=== PATIENT | male | born 1960 | race Two or more races ===

== ENCOUNTER 2022-04-14 09:41 | Emergency (ER) | payer BC, MEDICAID ==
[~2022-04-14] VITALS: Ht 172.7 cm; Wt 76.0 kg
[2022-04-14] MEDS ORDERED: SODIUM CHLORIDE 0.9% 1,000 ML IV ONE ×2 (12:45)
[2022-04-14] MEDS ORDERED: DexAMETHasone SOD PHOS 10MG/1ML VIAL INJ IV ONE (12:45)
[2022-04-14 13:07] LABS: Basophils # (auto) 0 10 ^3/uL (0-0.2); Basophils % (auto) 0.5 % (0.0-2.0); Eosinophils # (auto) 0.2 10 ^3/uL (0-0.8); Eosinophils % (auto) 1.9 % (0.0-7.0); Hemoglobin 12.5 g/dL (13.5-17.5); Lymphocytes # (auto) 0.8 10 ^3/uL (0.4-5.4); Lymphocytes % (auto) 8.3 % (10.0-50.0); Mean Corpuscular Hemoglobin 28.7 pg (28.0-32.0); Mean Corpuscular Volume 86.9 fL (80.0-100.0); Monocytes # (auto) 0.8 10 ^3/uL (0-1.3); Monocytes % (auto) 8.3 % (0.0-12.0); Neutrophils # (auto) 7.8 10 ^3/uL (1.6-8.6); Red Blood Cells 4.37 10^6/uL (4.5-5.90); Red Cell Distribution Width 14.4 % (11.8-14.3); White Blood Cell 9.6 10^3/uL (4.4-10.8)
[2022-04-14 13:26] LABS: Calcium 9.3 mg/dL (8.5-10.1); Magnesium 2.4 mg/dL (1.6-2.6)
[2022-04-14 13:29] LABS: BUN/Creatinine Ratio 16.3; Bilirubin, Total 0.4 mg/dL (0.2-1.0); INR 0.96 (0.9-1.15); Partial Thromboplastin Time 29.8 sec (24.6-33.4)
[2022-04-14 17:39] LABS: Urine Bacteria NONE SEEN /hpf (None Seen); Urine Blood Negative /uL (Negative); Urine Specific Gravity 1.015 (1.001-1.035); Urine WBC <1 /hpf (0 - 3)
[2022-04-14] MEDS ORDERED: HYDROmorphone HCL 2 MG/ML VL/or syr IV ONE (20:45)
[2022-04-14 21:10] VITALS: BP 148/86
== END 2022-04-14 21:21 | disposition home or self-care (01) ==
LOC: ER 09:41
DX: C78.39 Secondary malignant neoplasm of other respiratory organs (principal); R13.10 Dysphagia, unspecified; G40.909 Epilepsy, unspecified, not intractable, without status epilepticus; I10 Essential (primary) hypertension; I25.2 Old myocardial infarction; E11.9 Type 2 diabetes mellitus without complications; Z86.73 Personal history of transient ischemic attack (TIA), and cerebral infarction without residual deficits; Z88.1 Allergy status to other antibiotic agents
CPT/HCPCS: 36415; 70491; 71046; 80053; 81001; 83735; 84443; 85025; 85610; 85730; 96361; 96374; 96375; 99285; J1100; J1170; J7030; Q9967

== ENCOUNTER 2023-11-25 02:19 | Inpatient (IN) | payer BC, MEDICAID ==
[~2023-11-25] VITALS: Ht 172.7 cm; Wt 62.4 kg
[2023-11-25] VITALS (10 sets, daily range): BP systolic 127–149; BP diastolic 76–85; PULSE 85–113; RESP 16–22; TEMP 97.8–98.5; O2SAT 90–96
[2023-11-25 03:06] LABS: Basophils # (auto) 0.1 10 ^3/uL (0-0.2); Eosinophils # (auto) 0.1 10 ^3/uL (0-0.8); Eosinophils % (auto) 1.3 % (0.0-7.0); Mean Corpuscular Volume 79.5 fL (80.0-100.0)
[2023-11-25] MEDS: ALBUTEROL SULF 2.5 MG/0.5ML(0.5%) NEB SOLN NEB ONE (03:06)
[2023-11-25 03:08] LABS: Basophils % (auto) 0.9 % (0.0-2.0); Hematocrit 33.5 % (41.0-53.0); Hemoglobin 11.1 g/dL (13.5-17.5); Lymphocytes # (auto) 0.5 10 ^3/uL (0.4-5.4); Lymphocytes % (auto) 5.2 % (10.0-50.0); Mean Corpuscular Hemoglobin 26.3 pg (28.0-32.0); Monocytes # (auto) 0.8 10 ^3/uL (0-1.3); Monocytes % (auto) 7.3 % (0.0-12.0); Neutrophils % (auto) 85.3 % (37.0-80.0); Red Blood Cells 4.21 10^6/uL (4.5-5.90); Red Cell Distribution Width 15.3 % (11.8-14.3); White Blood Cell 10.5 10^3/uL (4.4-10.8)
[2023-11-25 03:21] LABS: Alanine Aminotransferase 12 U/L (7-40); Albumin 4.1 g/dL (3.2-4.8); Alkaline Phosphatase 99 U/L (46-116); Anion Gap 10 (5-15); Aspartate Aminotransferase 16 U/L (13-40); BUN/Creatinine Ratio 8.8 (10.0-20.0); Blood Urea Nitrogen 10 mg/dL (9-23); Calcium 11.9 mg/dL (8.7-10.4); Carbon Dioxide 28 mmol/L (20-30); Chloride 98 mmol/L (98-107); Glucose 142 mg/dL (74-106); Potassium 3.4 mmol/L (3.5-5.1); Sodium 136 mmol/L (136-145)
[2023-11-25 03:22] LABS: Bilirubin, Total 0.4 mg/dL (0.2-1.0); Total Protein 7.4 g/dL (5.7-8.2)
[2023-11-25] MEDS: SODIUM CHLORIDE 0.9% 1,000 ML IV ONE ×2 (04:20→05:46)
[2023-11-25] MEDS: MORPHINE SULFATE 4 MG/ML SYR/VIAL ONE (05:30)
[2023-11-25] MEDS: ONDANSETRON HCL 4 MG/2 ML VIAL ONE (05:31)
[2023-11-25] MEDS: IOHEXOL 300 MG/ML 100ML BOTTLE IJ ONE (05:33)
[2023-11-25] MEDS: ONDANSETRON HCL 4 MG/2 ML VIAL IV ONE ×2 (05:34→08:32)
[2023-11-25] MEDS: DexAMETHasone SOD PHOS 10MG/1ML VIAL INJ IV ONE (05:34)
[2023-11-25] MEDS: MORPHINE SULFATE 4 MG/ML SYR/VIAL IV ONE ×2 (05:35→08:33)
[2023-11-25 06:20] LABS: Urine Bacteria None Seen /hpf (None Seen)
[2023-11-25 06:24] LABS: Urine Blood Negative /uL (Negative); Urine Clarity Clear (Clear); Urine Color Light-Yellow (Yellow); Urine Protein, UAD Negative (Negative); Urine Specific Gravity 1.016 (1.001-1.035); Urine Urobilinogen Normal (Negative); Urine WBC <1 /hpf (0 - 3)
[2023-11-25] MEDS ORDERED: ONDANSETRON HCL 4 MG/2 ML VIAL IV PRN (09:15)
[2023-11-25] MEDS ORDERED: DEXTROSE (50%) 50ML SYRG IV PRN (09:15)
[2023-11-25] MEDS: SODIUM CHLORIDE 0.9% 1,000 ML IV SCH (09:58)
[2023-11-25 10:28] LABS: Magnesium 1.3 mg/dL (1.6-2.6)
[2023-11-25 10:30] LABS: Phosphorus 2.3 mg/dL (2.4-5.1)
[2023-11-25 11:18] LABS: INR 1.18 (0.9-1.15); Prothrombin Time 12.4 sec (9.3-11.8)
[2023-11-25] MEDS: levoFLOXacin 500MG 100 ML IV ONE (11:37)
[2023-11-25] MEDS: ACCU-CHEK COMFORT CURVE STRIP VI SCH (11:38)
[2023-11-25] MEDS: InsuLIN REG 1unit/0.01ml Soln (100units/ml) SC SCH (12:03)
[2023-11-25] MEDS: CALCITONIN 400unit/2ml Vial (200unit/ml) IM ONE (16:12)
[2023-11-25] MEDS: MORPHINE SULFATE INJ 2 MG/ml SYRG IV PRN (16:57)
[2023-11-25] MEDS: PAMIDRONATE DISODIUM 60 MG in SOD CHL 0.45% 1,000 ML IV ONE (18:53)
[2023-11-26] VITALS (13 sets, daily range): BP systolic 141–156; BP diastolic 77–90; PULSE 79–114; RESP 16–20; TEMP 97.5–99; O2SAT 95–100
[2023-11-26] MEDS ORDERED: AMIT75TA6 PO (00:06)
[2023-11-26] MEDS ORDERED: MORP30TA PO (00:06)
[2023-11-26] MEDS ORDERED: OXY5T GT (00:06)
[2023-11-26] MEDS: ALBUTEROL SULF 2.5 MG/0.5ML(0.5%) NEB SOLN NEB PRN (01:04)
[2023-11-26] MEDS: IPRATROPIUM BROM 0.5 MG/2.5ML INH SOL NEB PRN (01:05)
[2023-11-26] MEDS: oxyCODONE HCL 5MG TAB PO PRN (05:47)
[2023-11-26] MEDS ORDERED: MORPHINE SULF 30 mg ER tab PO SCH (06:00)
[2023-11-26 06:57] LABS: Alanine Aminotransferase 12 U/L (7-40); Albumin 3.8 g/dL (3.2-4.8); Alkaline Phosphatase 84 U/L (46-116); Anion Gap 10 (5-15); Aspartate Aminotransferase 16 U/L (13-40); BUN/Creatinine Ratio 10.3 (10.0-20.0); Bilirubin, Total 0.4 mg/dL (0.2-1.0); Blood Urea Nitrogen 11 mg/dL (9-23); Calcium 11.5 mg/dL (8.7-10.4); Carbon Dioxide 29 mmol/L (20-30); Chloride 100 mmol/L (98-107); Glucose 116 mg/dL (74-106); Potassium 3.4 mmol/L (3.5-5.1); Sodium 139 mmol/L (136-145); Total Protein 6.7 g/dL (5.7-8.2)
[2023-11-26 07:47] LABS: Basophils # (auto) 0 10 ^3/uL (0-0.2); Basophils % (auto) 0.4 % (0.0-2.0); Eosinophils # (auto) 0.1 10 ^3/uL (0-0.8); Eosinophils % (auto) 0.6 % (0.0-7.0); Hematocrit 29.1 % (41.0-53.0); Hemoglobin 9.5 g/dL (13.5-17.5); Lymphocytes # (auto) 0.6 10 ^3/uL (0.4-5.4); Lymphocytes % (auto) 6.5 % (10.0-50.0); Mean Corpuscular Hemoglobin 26.2 pg (28.0-32.0); Mean Corpuscular Hgb Conc. 32.8 g/dL (32.0-36.0); Mean Corpuscular Volume 79.8 fL (80.0-100.0); Monocytes # (auto) 0.9 10 ^3/uL (0-1.3); Monocytes % (auto) 9.2 % (0.0-12.0); Neutrophils # (auto) 7.8 10 ^3/uL (1.6-8.6); Neutrophils % (auto) 83.3 % (37.0-80.0); Red Blood Cells 3.65 10^6/uL (4.5-5.90); Red Cell Distribution Width 15.6 % (11.8-14.3); White Blood Cell 9.4 10^3/uL (4.4-10.8)
[2023-11-26] MEDS: levoFLOXacin 500MG 100 ML IV SCH (10:40)
[2023-11-26] MEDS: MORPHINE SULFATE INJ 2 MG/ml SYRG IV ONE (10:41)
[2023-11-26] MEDS: oxyCODONE ER 10 MG TAB PO PRN (14:36)
[2023-11-26 14:45] LABS: % Iron Saturation 7.7 % (20-55)
[2023-11-26] MEDS: GADOTERATE MEG 10 MMOL/20ml INJ (0.5MMOL/ml) IV ONE (14:48)
[2023-11-26 15:00] LABS: Alanine Aminotransferase 13 U/L (7-40); Alkaline Phosphatase 89 U/L (46-116); Anion Gap 5 (5-15); Aspartate Aminotransferase 20 U/L (13-40); BUN/Creatinine Ratio 9.2 (10.0-20.0); Bilirubin, Total 0.4 mg/dL (0.2-1.0); Blood Urea Nitrogen 9 mg/dL (9-23); Carbon Dioxide 29 mmol/L (20-30); Chloride 101 mmol/L (98-107); Glucose 116 mg/dL (74-106); Potassium 3.1 mmol/L (3.5-5.1); Sodium 135 mmol/L (136-145); Total Protein 6.9 g/dL (5.7-8.2)
[2023-11-26] MEDS: MORPHINE SULF 30 mg ER tab PO SCH (20:44)
[2023-11-27] VITALS (8 sets, daily range): BP systolic 114–144; BP diastolic 65–95; PULSE 80–122; RESP 16–18; TEMP 97.9–98.9; O2SAT 94–97
[2023-11-27 08:16] LABS: Rapid Influenza A Negative (Negative); Rapid Influenza B Negative (Negative)
[2023-11-27 08:17] LABS: COVID19 ANTIGEN SOFIA FIA NEGATIVE (NEGATIVE)
[2023-11-27] MEDS: POTASSIUM CHL 20 Meq TABLET PO ONE (19:38)
[2023-11-27] MEDS: FUROSEMIDE 40 MG/4 ML VIAL IV SCH (19:39)
[2023-11-28] VITALS (11 sets, daily range): BP systolic 105–123; BP diastolic 67–95; PULSE 60–94; RESP 16–19; TEMP 97.9–98.7; O2SAT 90–100
[2023-11-28 06:17] LABS: Alanine Aminotransferase 20 U/L (7-40); Albumin 4.1 g/dL (3.2-4.8); Alkaline Phosphatase 90 U/L (46-116); Anion Gap 8 (5-15); Aspartate Aminotransferase 27 U/L (13-40); BUN/Creatinine Ratio 11.2 (10.0-20.0); Bilirubin, Total 0.3 mg/dL (0.2-1.0); Blood Urea Nitrogen 12 mg/dL (9-23); Calcium 10.4 mg/dL (8.7-10.4); Carbon Dioxide 29 mmol/L (20-30); Chloride 99 mmol/L (98-107); Glucose 109 mg/dL (74-106); Potassium 3.6 mmol/L (3.5-5.1); Sodium 136 mmol/L (136-145); Total Protein 7.2 g/dL (5.7-8.2)
[2023-11-28 11:09] LABS: Folate (Folic Acid) 17.66 ng/mL (>5.38)
[2023-11-28 12:30] LABS: Body Fluid pH 8
[2023-11-28 13:34] LABS: Body Fluid Polymorphonuclear 5 % (0-25); Body Fluid Red Blood Cells 35000 CUMM (0-2000); Body Fluid White Blood Cells 50 CUMM (0-200)
[2023-11-29] VITALS (10 sets, daily range): BP systolic 107–139; BP diastolic 68–111; PULSE 64–123; RESP 18–22; TEMP 97.5–98.3; O2SAT 92–99
[2023-11-29] MEDS: methylPREDNISolone SOD SUCC 40 MG/ML VL IV SCH (12:59)
[2023-11-29] MEDS: APIXABAN 5 MG TAB PO SCH (12:59)
[2023-11-29 13:07] LABS: Protein, Body Fluid 4.3 g/dL (.)
[2023-11-30 01:00] VITALS: BP 112/66; PULSE 81; RESP 17; TEMP 97.7; O2SAT 96
[2023-11-30 05:00] VITALS: BP 130/70; PULSE 73; RESP 18; TEMP 98.3; O2SAT 98
[2023-11-30 08:00] VITALS: PULSE 85
[2023-11-30 09:12] VITALS: O2SAT 98
[2023-11-30] MEDS: DOCUSATE SOD 100 MG CAP PO PRN (09:25)
[2023-11-30] MEDS ORDERED: ALBUAER3 IN (12:55)
[2023-11-30] MEDS ORDERED: LEVO500T91 PO (12:55)
[2023-11-30] MEDS ORDERED: FURO1TAB31 PO (12:55)
[2023-11-30] MEDS ORDERED: OXYC325T14 PO (12:55)
[2023-11-30] MEDS ORDERED: PRED20TA2 PO (12:55)
[2023-11-30 13:00] VITALS: BP 136/80; PULSE 88; RESP 19; TEMP 97.9; O2SAT 92
[2023-11-30 15:55] VITALS: BP 143/85; TEMP 36.6
[2023-12-13] MEDS ORDERED: ONDA-155 PO (20:21)
[2023-12-13] MEDS ORDERED: OMEP20TA PO (20:21)
[2023-12-13] MEDS ORDERED: POTA-220 PO (20:21)
[2023-12-13] MEDS ORDERED: METO25TA5 PO (20:21)
[2023-12-13] MEDS ORDERED: AMLO1TAB22 PO (20:21)
[2023-12-13] MEDS ORDERED: METF-370 PO (20:21)
[2023-12-13] MEDS ORDERED: APIX5TAB PO (20:21)
[2023-12-15] MEDS ORDERED: MORP1TAB14 PO (18:45)
[2023-12-15] MEDS ORDERED: LEVO500T91 PO (18:45)
[2023-12-15] MEDS ORDERED: AMIT-118 PO (18:45)
[2023-12-15] MEDS ORDERED: PROC10TA6 PO (18:45)
[2023-12-15] MEDS ORDERED: OXY5T PO (18:45)
[2023-12-18] MEDS ORDERED: NAPR-746 PO (16:16)
[2023-12-19] MEDS ORDERED: AMIO200T43 PO (13:15)
[2023-12-19] MEDS ORDERED: MORP1TAB12 PO (13:15)
[2023-12-19] MEDS ORDERED: OXYC325T14 PO (13:15)
== END 2023-11-30 17:00 | disposition home or self-care (01) | DRG 177 ==
LOC: ER 02:19 → TELE 09:56 → TELE-E-ADS 15:30 → TELE-EAST 11-26 02:41
PROVIDERS: ADMIT Family Medicine; ATTEND Family Medicine
PROC: 0W993ZZ Drainage of Right Pleural Cavity, Percutaneous Approach (ICD-10-PCS; principal; 2023-11-28)
DX: J15.69 Pneumonia due to other Gram-negative bacteria (principal); J96.01 Acute respiratory failure with hypoxia; C34.90 Malignant neoplasm of unspecified part of unspecified bronchus or lung; E87.1 Hypo-osmolality and hyponatremia; J44.1 Chronic obstructive pulmonary disease with (acute) exacerbation; J44.0 Chronic obstructive pulmonary disease with (acute) lower respiratory infection; N17.9 Acute kidney failure, unspecified; J90 Pleural effusion, not elsewhere classified; J15.9 Unspecified bacterial pneumonia; Z20.822 Contact with and (suspected) exposure to COVID-19; D50.9 Iron deficiency anemia, unspecified; D75.839 Thrombocytosis, unspecified; E83.52 Hypercalcemia; E87.6 Hypokalemia; I10 Essential (primary) hypertension; I25.10 Atherosclerotic heart disease of native coronary artery without angina pectoris; Z53.20 Procedure and treatment not carried out because of patient's decision for unspecified reasons; E86.0 Dehydration; E78.00 Pure hypercholesterolemia, unspecified; E11.9 Type 2 diabetes mellitus without complications; Z86.73 Personal history of transient ischemic attack (TIA), and cerebral infarction without residual deficits; I25.2 Old myocardial infarction; Z88.0 Allergy status to penicillin; Z87.891 Personal history of nicotine dependence; Z86.718 Personal history of other venous thrombosis and embolism; Z79.01 Long term (current) use of anticoagulants; Z85.21 Personal history of malignant neoplasm of larynx; Z85.89 Personal history of malignant neoplasm of other organs and systems
CPT/HCPCS: 32555; 36415; 71045; 71260; 74176; 76604; 76942; 80053; 81001; 82306; 82607; 82728; 82746; 82962; 83010; 83540; 83550; 83615; 83735; 83970; 83986; 84100; 84484; 85025; 85045; 85379; 85610; 87205; 87426; 87804; 89051; 93005; 93970; 94640; G0378; J1100; J1815; J1956; J2405